=== PATIENT | female | born 1990 | race African-American/Black ===

== ENCOUNTER 2017-04-25 05:05 | Inpatient (IN) | payer BC, MEDICAID ==
[2017-04-25] MEDS ORDERED: PITOCin/NS 20 UNIT/1000ML DRIP 20,000 MILLIUNITS/1,000 ML BAG IV ONE ×2 (05:12→06:22)
[2017-04-25] MEDS: PITOCin/NS 20 UNIT/1000ML DRIP 20 UNITS/1,000 ML BAG IV SCH ×2 (05:28→06:36)
--- NOTE | 2017-04-25 05:53 | History and Physical Report ---
History of Present Illness Date of examination: 04/25/17 Date of admission: 04/25/17 05:05 History of present illness: 26 yo EDC 05/08/17 @ 38.1 weeks gestation, arrived via EMS for precipitous delivery of viable male infant. Voiced contractions started at 0200, however she waited to get other kids ready before she left hous. No records available. Past History Past Medical History: no pertinent history Past Surgical History: no surgical history Social history: no significant social history - Obstetrical History Expected Date of Delivery: 05/08/17 Actual Gestation: 38 Week(s) 1 Day(s) : 6 Para: 5 Hx # Term Pregnancies: 5 Number of Living Children: 5 Medications and Allergies Allergies Allergy/AdvReac Type Severity Reaction Status Date / Time No Known Allergies Allergy Verified 04/25/17 05:08 Home Medications Medication Instructions Recorded Confirmed Last Taken Type No Known Home Medications [No 07/11/14 07/11/14 Unknown History Reported Home Medications] Review of Systems All systems: negative - Vital Signs Vital signs: Vital Signs Pulse Ox 100 04/25/17 05:13 Temp Pulse Resp BP Pulse Ox 112 H 91 04/25/17 05:23 04/25/17 05:23 - Physical Exam Breasts: Positive: deferred Abdomen: Positive: normal appearance, soft Vulva: both: normal Vagina: Positive: normal moisture Results All other labs normal. Assessment and Plan A: IUP at 38 weeks Precipitous viable male P: PP recovery
--- NOTE | 2017-04-25 05:57 | Procedure Note ---
OB Delivery Note - Delivery Date of Delivery: 04/25/17 (male @ 0520) Surgeon: ROCIO BURCH - Vaginal Delivery presentation: vertex Delivery position: OA Intrapartum events: precipitous labor- <3hr Delivery induction: none Delivery monitor: none Route of delivery: Delivery cord: nuchal cord (x 3), 3 umbilical vessels Episiotomy: none Delivery laceration: none Anesthesia: none - Infant A at 1 minute: 8 at 5 minutes: 9 Gender: Male (Arrived via EMS C/C/+2 for of viable male . Spont. placenta. Bleeding scant. Pitiocin infusing.)
[2017-04-25] MEDS ORDERED: BRETHINE IVP PRN (05:58)
[2017-04-25] MEDS ORDERED: BRETHINE SUB-Q PRN (05:58)
[2017-04-25] MEDS ORDERED: MINERAL OIL PO PRN (05:58)
[2017-04-25] MEDS ORDERED: PITOCin/NS 30 UNIT/500ML 30 UNITS/500 ML BAG IV SCH (06:00)
[2017-04-25] MEDS ORDERED: LACTATED RINGERS 1,000 ML IV SCH (06:00)
[2017-04-25] MEDS ORDERED: TUCKS PAD TP PRN (06:02)
[2017-04-25] MEDS ORDERED: BENADRYL PO PRN (06:02)
[2017-04-25] MEDS ORDERED: TYLENOL PO PRN (06:02)
[2017-04-25] MEDS ORDERED: NORCO 5/325 PO PRN (06:02)
[2017-04-25] MEDS ORDERED: DULCOLAX PR PRN (06:02)
[2017-04-25] MEDS ORDERED: LANSINOH TP PRN (06:02)
[2017-04-25] MEDS ORDERED: PHENERGAN PO PRN (06:02)
[2017-04-25] MEDS ORDERED: SODIUM CHLORIDE FLUSH SYRINGE 10 ML IV NR (07:00)
[2017-04-25] MEDS: MOTRIN PO SCH ×2 (08:14→15:12)
[2017-04-25 08:51] LABS: Hemoglobin 7.1 gm/dl (10.1-14.3); Mean Corpuscular HGB Conc 31 % (30-34); White Blood Count 19.2 K/mm3 (4.5-11.0)
[2017-04-25 08:54] LABS: Mean Corpuscular Hemoglobin 19 pg (28-32); Mean Corpuscular Volume 62 fl (79-97); Platelet Count 278 K/mm3 (140-440)
[2017-04-25] MEDS: PRENATAL VITAMIN PO SCH (10:23)
[2017-04-25 15:36] LABS: Basophils % (Auto) 0.2 % (0.0-1.8); Eosinophils % (Auto) 0.1 % (0.0-4.3); Hematocrit 20.3 % (30.3-42.9); Hemoglobin 6.3 gm/dl (10.1-14.3); Mean Corpuscular HGB Conc 31 % (30-34); Platelet Count 257 K/mm3 (140-440); Red Blood Count 3.28 M/mm3 (3.65-5.03); Red Cell Distribution Width 19.8 % (13.2-15.2)
[2017-04-25 15:39] LABS: Mean Corpuscular Hemoglobin 19 pg (28-32); Mean Corpuscular Volume 62 fl (79-97)
[2017-04-25 17:59] LABS: Bilirubin,Urine Negative (Negative); Ketones,Urine Negative (Negative)
[2017-04-25 18:00] LABS: Leukocyte Esterase,Urine Small (Negative); Nitrite,Urine Negative (Negative); Protein,Urine <30 mg dL mg/dL (Negative); Urobilinogen,Urine < 2.0 mg/dL (<2.0)
[2017-04-25 18:29] LABS: Hematocrit 21.3 % (30.3-42.9); Hemoglobin 6.7 gm/dl (10.1-14.3)
--- NOTE | 2017-04-25 18:37 | Event Note ---
Date: 04/25/17 was contacted by nurse noting h/h low antepartum 7.1- postpartun 6.3-6.7. Discussed recommendation of blood transfusion. Patint declines at this time. VSS. Bleeding per nurse min-mod. will continue to watch closely
[2017-04-25 18:48] LABS: Blood,Urine Large (Negative); RBC,Urine > 182.0 /HPF (0.0-6.0)
[2017-04-25] MEDS: FEOSOL PO SCH (19:41)
[2017-04-26] MEDS: MOTRIN PO SCH ×3 (00:30→14:59)
[2017-04-26 05:23] LABS: Basophils % (Auto) 0.6 % (0.0-1.8); Eosinophils % (Auto) 0.7 % (0.0-4.3); Hematocrit 20.3 % (30.3-42.9); Hemoglobin 6.2 gm/dl (10.1-14.3); Mean Corpuscular HGB Conc 31 % (30-34); Platelet Count 241 K/mm3 (140-440); Red Blood Count 3.33 M/mm3 (3.65-5.03); White Blood Count 12.2 K/mm3 (4.5-11.0)
[2017-04-26 05:27] LABS: Mean Corpuscular Hemoglobin 19 pg (28-32); Mean Corpuscular Volume 61 fl (79-97); Red Cell Distribution Width 20.2 % (13.2-15.2)
[2017-04-26] MEDS ORDERED: BOOSTRIX IM ONE (06:00)
[2017-04-26] MEDS: FEOSOL PO SCH ×3 (08:17→20:14)
--- NOTE | 2017-04-26 08:33 | Progress Note ---
Assessment and Plan - Patient Problems (1) Iron deficiency anemia Current Visit: Yes Status: Acute Plan to address problem: Continue iron therapy Monitor signs of hemodynamic instability Discharge home tomorrow Subjective - Subjective Date of service: 04/26/17 Interval history: The patient is without any significant complaints. She denies headache chest pain or shortness of breath. The patient had been counseled for a transfusion of blood products secondary to severe anemia however she has refused. Precautions given to patient on anemia. Patient reports: appetite normal, voiding normally, pain well controlled [place]: doing well Objective - Vital Signs Latest vital signs: Vital Signs Temp Pulse Resp BP BP Pulse Ox 04/25/17 23:14 98.0 F 82 18 117/71 99 04/25/17 15:56 98.5 F 89 16 120/65 99 04/25/17 12:36 98.8 F 74 18 102/53 Intake and Output 04/25/17 04/26/17 04/26/17 22:59 06:59 14:59 Intake Total 600 360 Balance 600 360 Intake: Oral 480 Intake, Free Water 120 360 Other: Total, Intake Amount 240 # Voids Void 1 2 - Exam Abdomen: Present: normal appearance, soft Uterus: Present: normal, firm - Labs Labs: Abnormal lab results 04/25/17 04/25/17 04/25/17 Range/Units 07:49 15:09 17:07 WBC 19.2 H 14.0 H (4.5-11.0) K/mm3 RBC 3.28 L (3.65-5.03) M/mm3 Hgb 7.1 L 6.3 L (10.1-14.3) gm/dl Hct 23.0 L 20.3 L (30.3-42.9) % MCV 62 L 62 L (79-97) fl MCH 19 L 19 L (28-32) pg RDW 20.0 H 19.8 H (13.2-15.2) % Seg Neutrophils % 78.0 H (40.0-70.0) % Seg Neutrophils # 10.9 H (1.8-7.7) K/mm3 Urine Blood Large A (Negative) Urine WBC (Auto) 15.0 H (0.0-6.0) /HPF 04/25/17 04/26/17 Range/Units 18:08 05:05 WBC 12.2 H (4.5-11.0) K/mm3 RBC 3.33 L (3.65-5.03) M/mm3 Hgb 6.7 L 6.2 L (10.1-14.3) gm/dl Hct 21.3 L 20.3 L (30.3-42.9) % MCV 61 L (79-97) fl MCH 19 L (28-32) pg RDW 20.2 H (13.2-15.2) % Seg Neutrophils % (40.0-70.0) % Seg Neutrophils # (1.8-7.7) K/mm3 Urine Blood (Negative) Urine WBC (Auto) (0.0-6.0) /HPF
--- NOTE | 2017-04-26 08:36 | Discharge Summary ---
Providers - Providers Date of Admission: 04/25/17 05:05 Date of discharge: 04/27/17 Attending physician: SOFAÍ ADDISON Primary care physician: SOFÍA ADDISON Hospitalization Reason for admission: active labor Delivery: Discharge diagnosis: IUP at term delivered, other (iron deficiency anemia) baby: male Hospital course: The patient presented in active labor completely dilated. She had a normal spontaneous vaginal delivery. course was complicated by iron deficiency anemia which the patient refused transfusion of blood products. Condition at discharge: Good Disposition: DC-01 TO HOME OR SELFCARE - Discharge Diagnoses (1) Iron deficiency anemia Status: Acute Plan - Discharge Medications Prescriptions: RX: Ferrous Sulfate [Feosol 325 MG tab] 325 mg PO BID #60 tablet HYDROcodone/APAP 5-325 [[place] 5/325] 1 each PO Q6HR PRN #30 tablet PRN Reason: Pain Ibuprofen [Motrin] 800 mg PO Q8HR PRN #60 tablet PRN Reason: Pain - Provider Discharge Summary Activity: no sex for 6 weeks, no heavy lifting 4 weeks, no strenuous exercise Diet: routine Instructions: routine Additional instructions: [] Smoking cessation referral if applicable(refer to patient education folder for contact #) [] Refer to [facility]'s [facility] Booklet Call your doctor immediately for: * Fever > 100.5 * Heavy vaginal bleeding ( >1 pad per hour) * Severe persistent headache * Shortness of breath * Reddened, hot, painful area to leg or breast * Follow up in 4 weeks - Follow up plan
[2017-04-26] MEDS: PRENATAL VITAMIN PO SCH (14:58)
[2017-04-27] MEDS: COLACE PO SCH ×2 (09:27→23:07)
[2017-04-27] MEDS: FEOSOL PO SCH ×3 (09:27→23:11)
[2017-04-27] MEDS: PRENATAL VITAMIN PO SCH (09:27)
[2017-04-27] MEDS: MOTRIN PO SCH ×4 (11:48→23:07)
[2017-04-27 18:53] VITALS: BP 128/85
== END 2017-04-27 23:17 | disposition home or self-care (01) | DRG 774 ==
LOC: LD 05:05 → OB 07:29
PROVIDERS: ADMIT Obstetrics & Gynecology; ATTEND Obstetrics & Gynecology
PROC: 10E0XZZ Delivery of Products of Conception, External Approach (ICD-10-PCS; principal; 2017-04-25)
PROC: 3E0234Z Introduction of Serum, Toxoid and Vaccine into Muscle, Percutaneous Approach (ICD-10-PCS; 2017-04-26)
DX: O69.81X0 Labor and delivery complicated by cord around neck, without compression, not applicable or unspecified (principal); O72.1 Other immediate postpartum hemorrhage; O62.3 Precipitate labor; Z3A.38 38 weeks gestation of pregnancy; Z37.0 Single live birth; Z23 Encounter for immunization; O90.81 Anemia of the puerperium; D50.9 Iron deficiency anemia, unspecified
CPT/HCPCS: 36415; 81001; 85014; 85018; 85025; 85027; 86850; 86900; 86901; 87086; 90471; 90715; J2590

== ENCOUNTER 2018-05-31 08:15 | Emergency (ER) | payer MEDICAID ==
[2018-05-31] MEDS ORDERED: ZOFRAN ODT PO ONE (08:35)
[2018-05-31] MEDS ORDERED: TYLENOL PO ONE (08:35)
--- NOTE | 2018-05-31 08:39 | Emergency Department Report ---
ED Abdominal Pain HPI - General Chief Complaint: Abdominal Pain Stated Complaint: PREG/SHARP PAIN Time Seen by Provider: 05/31/18 08:26 Source: patient Mode of arrival: Ambulatory Limitations: No Limitations - History of Present Illness Initial Comments: Patient is a 4 female who presents with approximately 24 weeks complaining of low right lower quadrant abdominal pain that started at 5 AM this morning. Patient states that she has not received care yet for this . Patient denies vaginal bleeding, dysuria, fever, chills, dizziness or headaches MD Complaint: abdominal pain -: Sudden Location: RLQ Migration to: no migration Severity scale (0 -10): 6 Quality: stabbing, sharp Consistency: intermittent Context: other (pregn) Associated Symptoms: nausea. denies: vomiting, diarrhea, constipation, dysuria, hematuria - Related Data LMP Date: 01/02/18 LMP (females 10-50): Previous Rx's Medication Instructions Recorded Last Taken Type Ferrous Sulfate [Feosol 325 MG tab] 325 mg PO BID #60 tablet 04/26/17 Unknown Rx HYDROcodone/APAP 5-325 [[place] 1 each PO Q6HR PRN #30 tablet 04/26/17 Unknown Rx 5/325] Ibuprofen [Motrin] 800 mg PO Q8HR PRN #60 tablet 04/26/17 Unknown Rx Nitrofurantoin Monohyd/M-Cryst 100 mg PO BID #10 capsule 05/31/18 Unknown Rx [Macrobid 100 mg Capsule] Allergies Allergy/AdvReac Type Severity Reaction Status Date / Time No Known Allergies Allergy Verified 05/31/18 08:19 ED Review of Systems ROS: Stated complaint: PREG/SHARP PAIN Other details as noted in HPI Comment: All other systems reviewed and negative ED Past Medical Hx - Past Medical History Previous Medical History?: No Hx Hypertension: No Hx Congestive Heart Failure: No Hx Diabetes: No Hx Deep Vein Thrombosis: No Hx Renal Disease: No Hx Sickle Cell Disease: No Hx Seizures: No Hx Asthma: No Hx COPD: No Hx HIV: No - Surgical History Past Surgical History?: No - Social History Smoking Status: Never Smoker Substance Use Type: None - Medications Home Medications: Home Medications Medication Instructions Recorded Confirmed Last Taken Type Ferrous Sulfate [Feosol 325 MG tab] 325 mg PO BID #60 tablet 04/26/17 Unknown Rx HYDROcodone/APAP 5-325 [[place] 1 each PO Q6HR PRN #30 tablet 04/26/17 Unknown Rx 5/325] Ibuprofen [Motrin] 800 mg PO Q8HR PRN #60 tablet 04/26/17 Unknown Rx Nitrofurantoin Monohyd/M-Cryst 100 mg PO BID #10 capsule 05/31/18 Unknown Rx [Macrobid 100 mg Capsule] ED Physical Exam - General Limitations: No Limitations General appearance: alert, in no apparent distress - Head Head exam: Present: atraumatic, normocephalic - Eye Eye exam: Present: normal appearance - ENT ENT exam: Present: mucous membranes moist - Neck Neck exam: Present: normal inspection - Respiratory Respiratory exam: Present: normal lung sounds bilaterally. Absent: respiratory distress - Cardiovascular Cardiovascular Exam: Present: regular rate, normal rhythm. Absent: systolic murmur, diastolic murmur, rubs, gallop - GI/Abdominal GI/Abdominal exam: Present: soft, tenderness (mild tenderness on palpation of the right quadrant), normal bowel sounds. Absent: distended, guarding, rebound, rigid, mass, bruit - Extremities Exam Extremities exam: Present: normal inspection, full ROM. Absent: tenderness - Back Exam Back exam: Present: normal inspection, full ROM. Absent: CVA tenderness (R), CVA tenderness (L), muscle spasm - Neurological Exam Neurological exam: Present: alert, oriented X3 - Psychiatric Psychiatric exam: Present: normal affect, normal mood - Skin Skin exam: Present: warm, dry, intact, normal color. Absent: rash ED Course Vital Signs 05/31/18 05/31/18 08:20 08:41 Temperature 98 F Pulse Rate 89 Respiratory 18 20 Rate Blood Pressure 106/64 O2 Sat by Pulse 98 Oximetry ED Medical Decision Making - Lab Data Result diagrams: 05/31/18 08:41 - Radiology Data Radiology results: report reviewed, image reviewed FINAL REPORT EXAM: US OB gt; = 14 WEEKS FETUS HISTORY: rlq pain TECHNIQUE: Grayscale and color doppler ultrasound of the fetus was performed for growth. PRIORS: None. FINDINGS: A single, live intrauterine fetus is present in variable presentation with a heart rate of 152 beats per minute. The placenta is grade 0 and posterior and left lateral in location. The amniotic fluid volume is subjectively normal. Biparietal diameter: 15 weeks and 3 days. Head circumference: 15 weeks and 0 days. Abdominal circumference: 15 weeks and 2 days. Femur length: 14 weeks and 1 day. Estimated gestational age based on ultrasound criteria is 15 weeks and 0 days with an ALY of 11/22/2018. IMPRESSION: Live intrauterine fetus measuring at 15 weeks and 0 days gestational age with an ALY of 11/22/2018. Transcribed By: Dictated By: EDDIE DOWELL MD Electronically Authenticated By: EDDIE DOWELL MD Signed Date/Time: 05/31/18 1139 - Medical Decision Making 27-year-old female presents to with single IUP experiencing abdominal pain. Ultrasound shows single with no complications. See report above Discussed findings with the patient Patient given her referrals to follow-up with [facility]. Vital signs are normal she is in no acute distress sign discussed Tylenol as for pain. Critical care attestation.: If time is entered above; I have spent that time in minutes in the direct care of this critically ill patient, excluding procedure time. ED Disposition Clinical Impression: Normal IUP (intrauterine ) on ultrasound Disposition: - TO HOME OR SELFCARE Is pt being admited?: No Does the pt Need Aspirin: No Condition: Stable Instructions: Abdominal Pain (ED), (ED), Abdominal Pain in (ED) Additional Instructions: Make sure to follow up with the primary care physician as discussed. Tylenol as needed for pain Increase hydration to at least 80 or more ounces daily If you have any worsening symptoms or develop new symptoms please return to ED immediately. Referrals: NISREEN FERNANDEZ MD [Referring] - 3-5 Days [facility] [Provider Group] - 3-5 Days [facility] [Provider Group] - 3-5 Days Forms: Accompanied Note, Work/School Release Form(ED) Time of Disposition: 12:47
[2018-05-31 08:45] LABS: Bilirubin,Urine NEG (Negative); Blood,Urine NEG (Negative); Color,Urine Yellow (Yellow); Mucus,Urine FEW /HPF; Protein,Urine <15 mg/dL mg/dL (Negative); Urobilinogen,Urine < 2.0 mg/dL (<2.0)
[2018-05-31 09:10] LABS: BUN/Creatinine Ratio 30; Blood Urea Nitrogen 9 mg/dL (7-17); Calcium 8.8 mg/dL (8.4-10.2); Hemolysis Index 4
--- NOTE | 2018-05-31 11:39 | Ultrasound Report ---
FINAL REPORT EXAM: US OB >= 14 WEEKS FETUS HISTORY: rlq pain TECHNIQUE: Grayscale and color doppler ultrasound of the fetus was performed for growth. PRIORS: None. FINDINGS: A single, live intrauterine fetus is present in variable presentation with a heart rate of 152 beats per minute. The placenta is grade 0 and posterior and left lateral in location. The amniotic fluid vo lume is subjectively normal. Biparietal diameter: 15 weeks and 3 days. Head circumference: 15 weeks and 0 days. Abdominal circumference: 15 weeks and 2 days. Femur length: 14 weeks and 1 day. Estimated gestational age based on ultrasound criteria is 15 weeks and 0 days with an ALY of 11/23/19 19. IMPRESSION: Live intrauterine fetus measuring at 15 weeks and 0 days gestational age with an ALY of 11/22/2018.
[2018-05-31 13:10] VITALS: BP 108/61
== END 2018-05-31 13:10 | disposition home or self-care (01) ==
LOC: ED 08:15
DX: O26.892 Other specified pregnancy related conditions, second trimester (principal); R10.31 Right lower quadrant pain; R11.0 Nausea; Z3A.24 24 weeks gestation of pregnancy
CPT/HCPCS: 36415; 76805; 80048; 81001; 84702; 84703; Q0162

== ENCOUNTER 2018-11-29 09:30 | Inpatient (IN) | payer MEDICAID ==
[2018-11-29] MEDS ORDERED: LACTATED RINGERS 1,000 ML ONE (10:20)
[2018-11-29] MEDS ORDERED: BRETHINE SUB-Q PRN (10:25)
[2018-11-29] MEDS ORDERED: MINERAL OIL PO PRN (10:25)
[2018-11-29] MEDS ORDERED: XYLOCAINE 2% INFILTRATI ONE (10:25)
[2018-11-29] MEDS ORDERED: BRETHINE IVP PRN (10:25)
[2018-11-29] MEDS ORDERED: SUBLIMAZE IV PRN (10:25)
[2018-11-29] MEDS ORDERED: STADOL IV PRN (10:25)
[2018-11-29 10:36] LABS: Hematocrit 23.9 % (30.3-42.9); Hemoglobin 7.5 gm/dl (10.1-14.3); Mean Corpuscular HGB Conc 32 % (30-34); Platelet Count 278 K/mm3 (140-440); Red Blood Count 4.13 M/mm3 (3.65-5.03)
[2018-11-29 10:38] LABS: Mean Corpuscular Volume 58 fl (79-97); Red Cell Distribution Width 21.2 % (13.2-15.2)
[2018-11-29] MEDS ORDERED: TYLENOL PO PRN (10:54)
[2018-11-29] MEDS ORDERED: CYTOTEC PR PRN (10:54)
[2018-11-29] MEDS ORDERED: BENADRYL PO PRN (10:54)
[2018-11-29] MEDS ORDERED: PHENERGAN PR PRN (10:54)
[2018-11-29] MEDS ORDERED: ZOFRAN IV PRN (10:54)
[2018-11-29] MEDS ORDERED: PHENERGAN PO PRN (10:54)
[2018-11-29] MEDS ORDERED: LANSINOH TP PRN (10:54)
[2018-11-29] MEDS ORDERED: PITOCin/NS 20 UNIT/1000ML DRIP 20 UNITS/1,000 ML BAG IV SCH (11:00)
[2018-11-29] MEDS ORDERED: SODIUM CHLORIDE FLUSH SYRINGE 10 ML IV NR (11:00)
[2018-11-29] MEDS ORDERED: LACTATED RINGERS 1,000 ML IV SCH (11:00)
[2018-11-29] MEDS ORDERED: PITOCin/NS 30 UNIT/500ML 30 UNITS/500 ML BAG IV SCH ×2 (11:00)
--- NOTE | 2018-11-29 11:01 | History and Physical Report ---
History of Present Illness Date of examination: 11/29/18 Date of admission: 11/29/18 09:30 Chief complaint: Leaking fluid and contractions History of present illness: Pt is a 28 yo at 41.0 wks EGA who presents with SROM since 0800 today, clear fluid without odor. Positive movement, no bleeding. She is caren regularly. She received care at [facility] since 24 weeks EGA, and has presented for 4 appointments inconsistently. 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 She is GBS negative. 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) Past Surgical History: no surgical history Social history: no significant social history - Obstetrical History Expected Date of Delivery: 11/22/18 Actual Gestation: 41 Week(s) 0 Day(s) : 9 Para: 5 Spontaneous Abortions: 2 Number of Living Children: 5 Medications and Allergies Allergies Allergy/AdvReac Type Severity Reaction Status Date / Time No Known Allergies Allergy Verified 05/31/18 08:19 Home Medications Medication Instructions Recorded Confirmed Last Taken Type Ferrous Sulfate [Feosol 325 MG tab] 325 mg PO BID #60 tablet 04/26/17 11/29/18 Unknown Rx HYDROcodone/APAP 5-325 [[place] 1 each PO Q6HR PRN #30 tablet 04/26/17 11/29/18 Unknown Rx 5/325] Ibuprofen [Motrin] 800 mg PO Q8HR PRN #60 tablet 04/26/17 11/29/18 Unknown Rx Nitrofurantoin Monohyd/M-Cryst 100 mg PO BID #10 capsule 05/31/18 11/29/18 Unknown Rx [Macrobid 100 mg Capsule] Active Meds: Active Medications Acetaminophen (Tylenol) 650 mg PO Q4H PRN PRN Reason: Pain MILD(1-3)/Fever >100.5/LAY Bisacodyl (Dulcolax) 10 mg MT BID PRN PRN Reason: Constipation Butorphanol Tartrate (Stadol) 1 mg IV Q2H PRN PRN Reason: Pain, Moderate (4-6) Diphenhydramine HCl (Benadryl) 25 mg PO Q6H PRN PRN Reason: Itching Ephedrine Sulfate (Ephedrine Sulfate) 10 mg IV Q2M PRN PRN Reason: Hypotension Fentanyl (Sublimaze) 100 mcg IV Q2H PRN PRN Reason: Labor Pain Oxytocin/Sodium Chloride (Pitocin/Ns 20 Unit/1000ml Drip) 20 units in 1,000 mls @ 125 mls/hr IV DIRECT FRANK Oxytocin/Sodium Chloride (Pitocin/Ns 30 Unit/500ml) 30 units in 500 mls @ 1 mls/hr IV TITR FRANK; Protocol Oxytocin/Sodium Chloride (Pitocin/Ns 30 Unit/500ml) 30 units in 500 mls @ 2 mls/hr IV TITR FRANK; Protocol Lactated Ringer's (Lactated Ringers) 1,000 mls @ 125 mls/hr IV DIRECT FRANK Ibuprofen (Ibuprofen) 600 mg PO Q6H FRANK Magnesium Hydroxide (Milk Of Magnesia) 30 ml PO HS PRN PRN Reason: Constipation Methylergonovine Maleate (Methergine) 0.2 mg IM ONCE ONE Stop: 11/29/18 11:29 Mineral Oil (Mineral Oil) 30 ml PO QHS PRN PRN Reason: Constipation Misoprostol (Cytotec) 25 mcg VG ONCE ONE Stop: 11/29/18 11:26 Ondansetron HCl (Zofran) 4 mg IV Q8H PRN PRN Reason: Nausea And Vomiting Promethazine HCl (Phenergan) 25 mg MT Q6H PRN PRN Reason: Nausea And Vomiting Promethazine HCl (Phenergan) 25 mg PO Q6H PRN PRN Reason: Nausea And Vomiting Terbutaline Sulfate (Brethine) 0.25 mg SUB-Q ONCE PRN PRN Reason: Hyperstimulation/Hypertonicity Terbutaline Sulfate (Brethine) 0.25 mg IVP ONCE PRN PRN Reason: Hyperstimulation/Hypertonicity Witch Gianna/Glycerin (Tucks Pad) 1 each TP PRN PRN PRN Reason: Hemorrhoid/cleansing/soothing Review of Systems All systems: negative Cardiovascular: no chest pain Respiratory: no shortness of breath Genitourinary: leakage of fluid, contractions, no vaginal bleeding, no dysuria - Vital Signs Vital signs: Vital Signs Pulse BP 82 127/83 11/29/18 09:36 11/29/18 09:36 Temp Pulse Resp BP Pulse Ox 70 114/59 11/29/18 10:53 11/29/18 10:53 - Physical Exam Breasts: Positive: deferred Cardiovascular: Regular rate, Normal S1, Normal S2, No murmurs Lungs: Positive: Clear to auscultation, Normal air movement Abdomen: Positive: normal appearance (gravid), soft Genitourinary (Female): Positive: normal external genitalia, normal perenium Uterus: Positive: normal size (gravid), normal contour Extremities: Positive: normal - Obstetrical FHR: auscultation normal, category 1 Uterine Contraction Monitor Mode: External Cervical Dilatation: 7 Cervical Effacement Percentage: 90 station: 0 Uterine Contraction Frequency (min): 3 Uterine Contraction Pattern: Regular Results Result Diagrams: 11/29/18 Unknown Abnormal lab results 11/29/18 Range/Units Unknown Hgb 7.5 L (10.1-14.3) gm/dl Hct 23.9 L (30.3-42.9) % MCV 58 L (79-97) fl MCH 18 L (28-32) pg RDW 21.2 H (13.2-15.2) % All other labs normal. Assessment and Plan A: 28 yo grandmultip in active labor at term. Membranes ruptured x2.5 hours. Afebrile GBS negative P: Anticipate Attempt to place epidural before delivery
--- NOTE | 2018-11-29 11:10 | Procedure Note ---
OB Delivery Note - Delivery Date of Delivery: 11/29/18 Surgeon: YVETTE SANTOS ([facility]) Estimated blood loss: other (350) - Vaginal Delivery presentation: vertex Delivery position: OA Intrapartum events: precipitous labor- <3hr Delivery induction: none Delivery monitor: external FHT, external uterine Route of delivery: Delivery placenta: spontaneous Delivery cord: nuchal cord, 3 umbilical vessels Episiotomy: none Delivery laceration: none Anesthesia: none Delivery comments: Excellent maternal effort resulted in of viable male at 1040. So mersaulted through nuchal cord, compound posterior hand noted. Cord clamped and cut 3 minutes after . Placenta delivered spontaneously and intact at 1044. Apgars 8/9. No lacerations noted. EBL 350. Fundus firm to massage, Pitocin administered IV. Precipitous delivery, labor lasting 2 hours 40 minutes. - Infant A at 1 minute: 8 at 5 minutes: 9 Gender: Male
[2018-11-29] MEDS ORDERED: CYTOTEC VG ONE (11:25)
[2018-11-29] MEDS ORDERED: METHERGINE IM ONE (11:28)
[2018-11-29] MEDS ORDERED: TUCKS PAD TP PRN (12:00)
[2018-11-29] MEDS ORDERED: DULCOLAX PR PRN (12:00)
[2018-11-29] MEDS: IBUPROFEN PO SCH (14:28)
[2018-11-29] MEDS: FEOSOL PO SCH (21:24)
[2018-11-29] MEDS ORDERED: MILK OF MAGNESIA PO PRN (22:00)
[2018-11-30 00:11] LABS: Hemoglobin 5.6 gm/dl (10.1-14.3)
[2018-11-30 00:12] LABS: Hematocrit 18.4 % (30.3-42.9)
[2018-11-30] MEDS ORDERED: NACL 0.9% 500 ML 500 ML IV ONE (02:14)
[2018-11-30] MEDS ORDERED: BOOSTRIX IM ONE (06:00)
[2018-11-30] MEDS: IBUPROFEN PO SCH ×3 (06:08→22:03)
--- NOTE | 2018-11-30 08:14 | Progress Note ---
Assessment and Plan A: PPD1 s/p Severe anemia Bottle feeding Vital signs stable P: Receiving PRBC, needs 1 more unit Anticipate d/c to home on PPD2 Heme referral Subjective - Subjective Date of service: 11/30/18 Principal diagnosis: Interval history: Pt is a 28 yo at PPD1 s/p of viable male infant. 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 Patient reports: appetite normal, voiding normally, pain well controlled, ambulating normally : doing well, bottle feeding Objective - Vital Signs Latest vital signs: Vital Signs Temp Pulse Resp BP BP Pulse Ox 11/30/18 06:08 18 11/30/18 06:00 97.7 F 78 18 110/67 11/30/18 05:45 97.7 F 78 18 110/67 11/30/18 05:15 97.8 F 73 16 105/61 11/30/18 05:00 97.9 F 74 16 113/66 11/30/18 04:21 16 11/30/18 04:00 98.6 F 66 19 102/63 11/30/18 03:21 18 11/30/18 00:30 98.8 F 72 18 114/78 11/29/18 19:30 98.7 F 77 18 102/72 11/29/18 16:18 98.5 F 92 H 18 105/65 100 11/29/18 10:53 70 114/59 11/29/18 09:36 82 127/83 Intake and Output 11/29/18 11/30/18 11/30/18 23:59 07:59 15:59 Intake Total 1525 250 Output Total 650 Balance 875 250 Intake: IV 125 PITOCin/NS 20 UNIT/1000ML 125 DRIP 20 units In 1,000 ml @ 125 mls/hr IV DIRECT FRANK Rx#:[id number] Oral 440 Intake, Free Water 960 Blood Product 250 Leukoreduced Red Blood 250 Cells Unit [id number] Output: Urine 650 Void 650 Other: Total, Intake Amount 200 Total, Output Amount 650 # Voids Void 1 - Exam Cardiovascular: Present: Regular rate, Normal S1, Normal S2, No murmurs Lungs: Present: Clear to auscultation, Normal air movement Abdomen: Present: normal appearance, soft Uterus: Present: normal, firm, fundal height below umbilicus Extremities: Present: normal - Labs Labs: Abnormal lab results 11/29/18 11/29/18 11/29/18 Range/Units 10:14 22:58 Unknown Hgb 5.6 L* 7.5 L (10.1-14.3) gm/dl Hct 18.4 L* 23.9 L (30.3-42.9) % MCV 58 L (79-97) fl MCH 18 L (28-32) pg RDW 21.2 H (13.2-15.2) % Crossmatch See Detail
--- NOTE | 2018-11-30 08:18 | Discharge Summary ---
Providers - Providers Date of Admission: 11/29/18 09:30 Date of discharge: 12/01/18 Attending physician: ELIF GUERIN MD Primary care physician: ELIF GUERIN MD Hospitalization Reason for admission: active labor, rupture of membranes Delivery: Episiotomy: none Laceration: none Other procedures: none complications: other (Severe anemia) Discharge diagnosis: IUP at term delivered [place] baby: male Condition at discharge: Good Disposition: DC-01 TO HOME OR SELFCARE Plan - Discharge Medications Prescriptions: Ferrous Sulfate [Ferrous Sulfate 324 MG] 324 mg PO TID #90 tablet. Ibuprofen [Motrin 800 MG tab] 800 mg PO Q8HR PRN #60 tablet PRN Reason: Pain - Provider Discharge Summary Activity: routine, no sex for 6 weeks, no heavy lifting 4 weeks, no strenuous exercise Diet: routine Instructions: routine Additional instructions: [] Smoking cessation referral if applicable(refer to patient education folder for contact #) [] Refer to [facility]'s [facility] Booklet Call your doctor immediately for: * Fever > 100.5 * Heavy vaginal bleeding ( >1 pad per hour) * Severe persistent headache * Shortness of breath * Reddened, hot, painful area to leg or breast * Drainage or odor from incision. * Keep incision clean and dry at all times and follow doctor's instructions regarding bathing/showering - Follow up plan Follow up: YVETTE SANTOS CNM [Advanced Practice Nurse] - 14 Days (Please call for appointment)
[2018-11-30 15:30] LABS: Hematocrit 23.9 % (30.3-42.9); Hemoglobin 7.6 gm/dl (10.1-14.3)
[2018-11-30] MEDS: FEOSOL PO SCH (22:02)
[2018-12-01] MEDS: IBUPROFEN PO SCH (05:29)
[2018-12-01] MEDS ORDERED: BOOSTRIX IM ONE (06:00)
[2018-12-01 09:28] VITALS: BP 113/62
== END 2018-12-01 14:12 | disposition home or self-care (01) | DRG 775 ==
LOC: LD 09:30 → OB 12:49
PROVIDERS: ADMIT Obstetrics & Gynecology; ATTEND Obstetrics & Gynecology
PROC: 10E0XZZ Delivery of Products of Conception, External Approach (ICD-10-PCS; principal; 2018-11-29)
PROC: 30233N1 Transfusion of Nonautologous Red Blood Cells into Peripheral Vein, Percutaneous Approach (ICD-10-PCS; 2018-11-30)
DX: O62.3 Precipitate labor (principal); Z3A.41 41 weeks gestation of pregnancy; Z37.0 Single live birth; O69.81X0 Labor and delivery complicated by cord around neck, without compression, not applicable or unspecified; O99.02 Anemia complicating childbirth; D64.89 Other specified anemias
CPT/HCPCS: 36415; 85014; 85018; 85027; 86592; 86850; 86900; 86901; 86920; 90471; 90715; G0378; J2590; J7040; J7120; P9016

== ENCOUNTER 2019-01-24 09:48 | Day surgery (SDC) | payer MEDICAID ==
[2019-01-24] MEDS ORDERED: LACTATED RINGERS 1,000 ML IV SCH (10:15)
[2019-01-24] MEDS ORDERED: SUBLIMAZE IV PRN (11:04)
[2019-01-24] MEDS ORDERED: ZOFRAN IV PRN (11:04)
--- NOTE | 2019-01-24 11:05 | Anesthesia Day of Surgery ---
Anesthesia Day of Surgery - Day of Surgery Patient Examined: Yes Patient H&P Reviewed: Yes Patient is NPO: Yes
--- NOTE | 2019-01-24 11:07 | Anesthesia Consultation ---
Anesthesia Consult and Med Hx Date of service: 01/24/19 - Airway Anesthetic Teeth Evaluation: Chipped ROM Head & Neck: Adequate Mental/Hyoid Distance: Adequate Mallampati Class: Class II Intubation Access Assessment: Good - Pre-Operative Health Status ASA Pre-Surgery Classification: ASA1 Proposed Anesthetic Plan: General - Pulmonary Hx Smoking: Yes Hx Asthma: No COPD: No Hx Pneumonia: No Hx Sleep Apnea: No - Cardiovascular System Hx Hypertension: No - Central Nervous System Hx Seizures: No Hx Psychiatric Problems: No - Endocrine Hx Renal Disease: No Hx End Stage Renal Disease: No Hx Hypothyroidism: No Hx Hyperthyroidism: No - Hematic Hx Anemia: Yes Hx Sickle Cell Disease: No - Other Systems Hx Alcohol Use: No Hx Substance Use: No Hx Cancer: No
[2019-01-24] MEDS ORDERED: ROBINUL ONE (12:57)
[2019-01-24] MEDS ORDERED: PHENYLEPHRINE/NS Syringe 1,000 MCG/10 ML IV ONE (12:59)
[2019-01-24] MEDS ORDERED: ZEMURON IV ONE (12:59)
[2019-01-24] MEDS ORDERED: DECADRON ONE (12:59)
[2019-01-24] MEDS ORDERED: ZOFRAN ONE (12:59)
[2019-01-24] MEDS ORDERED: XYLOCAINE MPF 2% ONE (12:59)
[2019-01-24] MEDS ORDERED: DIPRIVAN 10 MG/ML IV ONE (13:00)
[2019-01-24] MEDS ORDERED: SUBLIMAZE ONE (13:00)
[2019-01-24] MEDS ORDERED: MARCAINE 0.5% INFILTRATI ONE ×2 (13:00→13:35)
[2019-01-24] MEDS ORDERED: NACL 0.9% IR ONE (13:35)
[2019-01-24] MEDS ORDERED: LACTATED RINGERS 1,000 ML ONE (14:03)
--- NOTE | 2019-01-24 14:09 | Short Stay Summary ---
Short Stay Documentation Date of service: 01/24/19 Narrative H&P: 28-year-old with undesired fertility. The patient has elected to undergo permanent sterilization. She has been made aware of other contraceptive options. - History Principal diagnosis: Undesired fertility Past Medical History: No medical history Past Surgical History: No surgical history Social history: single - Allergies and Medications Current Medications: Allergies No Known Allergies Allergy (Verified 05/31/18 08:19) Home Medications Medication Instructions Recorded Confirmed Last Taken Type Ferrous Sulfate [Ferrous Sulfate 324 mg PO TID #90 tablet.dr 11/30/18 Unknown Rx 324 MG] Ibuprofen [Motrin 800 MG tab] 800 mg PO Q8HR PRN #60 tablet 11/30/18 Unknown Rx HYDROcodone/APAP 5-325 [Enterprise 1 each PO Q6HR PRN #20 tablet 01/24/19 Unknown Rx 5/325] Ibuprofen [Motrin] 800 mg PO Q8HR PRN #60 tablet 01/24/19 Unknown Rx Active Medications Fentanyl (Sublimaze) 50 mcg IV Q5MIN PRN PRN Reason: Pain , Severe (7-10) Stop: 01/24/19 23:59 Lactated Ringer's (Lactated Ringers) 1,000 mls @ 100 mls/hr IV DIRECT FRANK Last Admin: 01/24/19 10:50 Dose: 100 mls/hr Documented by: Ondansetron HCl (Zofran) 4 mg IV ONCE PRN PRN Reason: Nausea And Vomiting - Physical exam General appearance: no acute distress Integumentary: no rash HEENT: Atraumatic Lungs: Clear to auscultation Breasts: deferred Heart: Regular rate Gastrointestinal: normal Female Genitourinary: deferred Extremities: no ischemia Neurological: Normal gait - Brief post op/procedure progress note Date of procedure: 01/24/19 Pre-op diagnosis: Undesired fertility Post-op diagnosis: same Procedure: Laparoscopy bilateral salpingectomy Anesthesia: GETA Surgeon: SOFÍA ADDISON Estimated blood loss: minimal Pathology: list (bilateral tubes) Specimen disposition: to lab Condition: stable - Hospital course Hospital course: The patient was admitted to day surgery underwent a laparoscopy and bilateral salpingectomy. Please see details of surgery. Postoperative course was uneventful. - Disposition Condition at discharge: Good Disposition: DC- TO HOME OR SELFCARE Short Stay Discharge Plan Activity: other (pelvic rest for one week) Diet: regular Additional Instructions: Follow-up is not required Follow-up as needed Prescriptions: Ibuprofen [Motrin] 800 mg PO Q8HR PRN #60 tablet PRN Reason: Pain, Mild (1-3) HYDROcodone/APAP 5-325 [Enterprise 5/325] 1 each PO Q6HR PRN #20 tablet PRN Reason: Pain
[2019-01-24] MEDS ORDERED: NORCO 5/325 PO PRN (14:38)
[2019-01-24 15:02] VITALS: BP 134/75
--- NOTE | 2019-01-24 21:08 | Post Anesthesia Evaluation ---
- Post Anesthesia Evaluation Patient Participated: Yes Airway Patent: Yes Stable Respiratory Function: Yes Nausea/Vomiting: No Temp > 96.8F: Yes Pain Manageable: Yes Adequeate Hydration: Yes Anesthesia Complications: No Block Receding Appropriately: Not Applicable Patient on Ventilator: No
--- NOTE | 2019-01-25 07:37 | Operative Report ---
Operative Report Operative Report: Date of surgery: 01/24/2019 Preoperative diagnosis: Unwanted fertility Postoperative diagnosis: Same as above Procedure: Laparoscopy; bilateral salpingectomy Surgeon: Nikki Gordillo M.D. Anesthesia: General endotracheal anesthesia Estimated blood loss: Minimal Findings: Uterus tubes and ovaries Pathology: Bilateral tubes Indication: 28-year-old with undesired fertility. The patient elected to undergo permanent sterilization. Procedure: The patient was taken to the operating room and given general endotracheal anesthesia without complication. The patient is prepped and draped in a normal sterile fashion. A bivalve speculum was placed in the patient's vagina and a single-tooth tenaculum was placed on the anterior lip of the cervix .A uterine acorn manipulator was placed, and the bivalve speculum was then removed. Attention was then turned to the patient's abdomen where a 5 mm infraumbilical skin incision was then made. A Veress needle was placed and peritoneal entry was verified water-filled syringe. Insufflation of the peritoneal cavity was performed with CO2 gas. A 5 mm trocar was placed and the laparoscope was then inserted. The patient was then placed in Trendelenburg. A 7 mm suprapubic skin incision was then made. Under direct visualization a 7 mm trocar was then placed. An additional left lateral 5 mm trocar was placed under direct visualization. General survey of the patient's abdomen revealed normal uterus tubes and ovaries. The fallopian tube was then followed out to the fimbriated end. The LigaSure device was used to coagulate and transect the mesosalpinx excising the right tube from the ovary and uterus. This is performed on the contralateral side as well. There was no evidence of any active bleeding at the conclusion of the case. The 7 mm trocar was then removed. The pneumoperitoneum was then released. The 5 mm trocars were then removed. The skin incisions were then closed with 4-0 Monocryl. The incisions were injected with quarter percent Marcaine. Dressings were applied to the incision. The vaginal instruments were then removed atraumatically. Then successfully extubated and taken to the recovery room. All sponge laps and needle counts were correct 2.
== END 2019-01-24 15:35 | disposition home or self-care (01) ==
LOC: OR 09:48
PROVIDERS: ATTEND Obstetrics & Gynecology
DX: Z30.2 Encounter for sterilization (principal); D64.9 Anemia, unspecified; Z98.890 Other specified postprocedural states; Z79.899 Other long term (current) drug therapy; Z87.891 Personal history of nicotine dependence
CPT/HCPCS: 58661; 81025; 88302; J1100; J2370; J2405; J2704; J3010; J7120